=== PATIENT | male | born 1985 | race Caucasian/White ===

== ENCOUNTER 2024-02-22 21:43 | Emergency (ER) | payer SELFPAY ==
[~2024-02-22] VITALS: Ht 185.4 cm; Wt 103.0 kg
[2024-02-22 21:50] VITALS: BP 147/100; PULSE 99; RESP 16; TEMP 98.4
[2024-02-23] MEDS ORDERED: IBUP-1492 PO (00:15)
[2024-02-23] MEDS ORDERED: ACET-3385 PO (00:15)
[2024-02-23] MEDS ORDERED: LIDO700A15 TP (00:15)
[2024-02-23] MEDS: ACETAMINOPHEN 500 MG TABLET PO ONE (00:17)
[2024-02-23] MEDS: IBUPROFEN 600 MG TABLET PO ONE (00:17)
[2024-02-23] MEDS: LIDOCAINE 5% TRANSDERMAL PATCH TD ONE (00:17)
== END 2024-02-23 00:23 | disposition home or self-care (01) ==
LOC: EMS 21:45
DX: S83.91XA Sprain of unspecified site of right knee, initial encounter (principal); V89.2XXA Person injured in unspecified motor-vehicle accident, traffic, initial encounter; Y93.89 Activity, other specified; Y92.89 Other specified places as the place of occurrence of the external cause; Y99.8 Other external cause status
CPT/HCPCS: 99283